=== PATIENT | male | born 1985 | race Caucasian/White ===

== ENCOUNTER 2021-10-13 22:18 | Emergency (ER) | payer OTHER ==
[2021-10-14] MEDS ORDERED: DIPH,PERTUS(ACELL)TETVAC-LF 0.5 ML VIAL IM ONE (00:14)
[2021-10-14] MEDS ORDERED: ONDANSETRON ODT 4 MG TAB PO STA (00:14)
[2021-10-14] MEDS ORDERED: BACITRACIN OINT 1 EACH PACKET TOPICAL ONE (00:15)
[2021-10-14] MEDS ORDERED: LIDOCAINE 1% INJ 10MG/ML (20 ML MDV) SQ ONE (00:15)
--- NOTE | 2021-10-14 00:58 | XR ---
EXAMINATION TYPE: XR chest 2V DATE OF EXAM: 10/14/2021 COMPARISON: NONE HISTORY: Cough TECHNIQUE: 2 views FINDINGS: Heart and mediastinum are normal. Lungs are clear of infiltrate. There is no pleural effusi on. There are no hilar masses. The bony thorax is intact. IMPRESSION: Normal chest.
--- NOTE | 2021-10-14 01:01 | XR ---
EXAMINATION TYPE: XR hand complete LT DATE OF EXAM: 10/14/2021 COMPARISON: None HISTORY: Dog bite TECHNIQUE: 3 views FINDINGS: Metacarpals are intact. I see no fracture nor dislocation. There is some thickening of the distal shaft of the proximal phalanx of the little finger consistent with an old injury. Carpal bones are intact. Joint spaces are fairly normal. IMPRESSION: No acute abnormality of the left hand.
[2021-10-14 01:06] LABS: Basophils # (A) 0.1 k/uL (0-0.2); Basophils % (A) 0 %; Eosinophils # (A) 0.1 k/uL (0-0.7); Eosinophils % (A) 0 %; HCT 44.1 % (39.0-53.0); HGB 15.1 gm/dL (13.0-17.5); Lymphocytes # (A) 1.6 k/uL (1.0-4.8); Lymphocytes % (A) 8 %; MCH 29.7 pg (25.0-35.0); MCHC 34.3 g/dL (31.0-37.0); MCV 86.7 fL (80.0-100.0); Mean Platelet Volume 10.4; Monocytes # (A) 0.8 k/uL (0-1.0); Monocytes % (A) 4 %; Neutrophils # (A) 18.2 k/uL (1.3-7.7); Neutrophils % (A) 87 %; Platelet Count 151 k/uL (150-450); RBC 5.09 m/uL (4.30-5.90); RDW 13.4 % (11.5-15.5)
[2021-10-14 01:21] LABS: Calcium 8.9 mg/dL (8.4-10.2); Potassium 3.3 mmol/L (3.5-5.1)
[2021-10-14] MEDS ORDERED: IBUPROFEN 600 MG TAB PO STA (01:48)
[2021-10-14] MEDS ORDERED: AMOXIC-POT CLAV 875-125MG 1 EACH TAB PO STA (01:49)
--- NOTE | 2021-10-14 01:50 | ED ---
General Adult HPI - General Chief complaint: Animal Bite Stated complaint: Dog bite,Vomiting Time Seen by Provider: 10/13/21 23:35 Source: patient, RN notes reviewed Mode of arrival: ambulatory Limitations: no limitations - History of Present Illness Initial comments: 36-year-old presents to the emergency department for evaluation of injuries to the left hand sustained from dog bites this evening. Patient states his tox were fighting amongst themselves and patient reached into separate them. He has lacerations on the second and third digits of the left hand. Bleeding was controlled prior to arrival. Patient states he experienced some shortness of breath and lightheadedness during the event. States he is concerned that possibly he had a panic attack. Patient states he is currently experiencing mild nausea. States the dogs are immunized, though he has not had a recent Tetanus. Denies fever, chills, blurry vision, chest pain, and abdominal pain. No loss of sensation to affected digits. - Related Data Previous Rx's Medication Instructions Recorded Amoxicillin/Potassium Clav 1 tab PO Q12HR #20 tab 10/14/21 [Augmentin 875-125 Tablet] Ibuprofen [Motrin] 600 mg PO Q8HR PRN #30 tab 10/14/21 Allergies Allergy/AdvReac Type Severity Reaction Status Date / Time No Known Allergies Allergy Verified 10/13/21 22:33 Review of Systems ROS Statement: Those systems with pertinent positive or pertinent negative responses have been documented in the HPI. ROS Other: All systems not noted in ROS Statement are negative. Past Medical History Past Medical History: No Reported History History of Any Multi-Drug Resistant Organisms: None Reported Past Surgical History: No Surgical Hx Reported Past Psychological History: No Psychological Hx Reported Smoking Status: Current every day smoker Past Alcohol Use History: None Reported Past Drug Use History: None Reported General Exam Limitations: no limitations (Well-developed, well-nourished male in no acute d istress. Initial temperature 99.4, pulse 92, respirations 20, blood pressure 121/81, pulse ox 98) General appearance: alert, in no apparent distress Eye exam: Present: normal appearance, PERRL, EOMI. Absent: scleral icterus, conjunctival injection, periorbital swelling Respiratory exam: Present: normal lung sounds bilaterally. Absent: respiratory distress, wheezes, rales, rhonchi, stridor Cardiovascular Exam: Present: regular rate, normal rhythm, normal heart sounds. Absent: systolic murmur, diastolic murmur, rubs, gallop, clicks GI/Abdominal exam: Present: soft, normal bowel sounds. Absent: distended, tenderness, guarding, rebound, rigid Left Forearm Wrist exam: Present: normal inspection, full ROM. Absent: tenderness, swelling Hand Wrist exam: Present: tenderness (Mild tenderness and swelling of the second and third digits), swelling, abrasion (superficial abrasion dorsal surface of third digit, distal phalanx), laceration (2.5 cm irregular laceration second digit; 2cm irregular laceration third digit. Lacerations are on palmar surface at distal phalanx.). Absent: normal inspection, full ROM (Patient has decreased range of motion due to discomfort, however is able to resist when assess flexor tendons of affected digits.), amputation, nail avulsion Vascular: Present: normal capillary refill, radial pulse, ulnar pulse. Absent: vascular compromise, Pallo Neurological exam: Present: alert, oriented X3, CN II-XII intact Psychiatric exam: Present: anxious Skin exam: Present: warm, dry Course Vital Signs 10/13/21 10/14/21 22:30 03:18 Temperature 99.4 F 98.7 F Pulse Rate 92 77 Respiratory 18 16 Rate Blood Pressure 121/81 119/77 O2 Sat by Pulse 98 97 Oximetry - Reevaluation(s) Reevaluation #1: 10/14/21 01:10 Digits anesthetized. Patient is soaking wounds. Tolerating without difficulty. 10/14/21 02:30 Patient is more relaxed as repair is underway. Discussed likelihood of panic symptoms being related to adrenaline during stressful events. Procedures - Laceration Laceration #1 Consent Obtained: verbal consent Indication: laceration Site: hand (2nd digit, left hand) Description: irregular Depth: simple, single layer Anesthetic Used: lidocaine 1% Anesthesia Technique: nerve block Amount (mls): 3 Pre-repair: wound explored, irrigated extensively Type of Sutures: nylon Size of Sutures: 5-0 Number of Sutures: 5 Technique: simple, interrupted Patient Tolerated Procedure: well, no complications Additional Comments: Digital block performed. Wounds soaked then thoroughly irrigated. 5 simple interrupted sutures to loosely approximate wound. Bacitracin dressing and tube gauze applied. Wound care reviewed at length. Patient verbalizes understanding. Laceration #2 Consent Obtained: verbal consent Indication: laceration Site: hand (3rd digit, left hand) Size (cm): 2 Description: irregular Depth: simple, single layer Anesthetic Used: lidocaine 1% Anesthesia Technique: nerve block Amount (mls): 3 Pre-repair: wound explored, irrigated extensively Type of Sutures: nylon Size of Sutures: 5-0 Number of Sutures: 4 Technique: simple, interrupted Patient Tolerated Procedure: well, no complications Additional Comments: Wound anesthetized via digital block. Soaked in idone. Thoroughly irrigated. 4 simple interrupted sutures placed without difficulty. Wound loosely approximated. Bacitracin dressing and tube gauze applied. Wound care discussed at length with patient. He verbalizes understanding. Medical Decision Making - Medical Decision Making 36-year-old male presents to the emergency department for evaluation of wounds sustained a dog bite earlier this evening. Upon exam, patient is initially mildly anxious though is in no acute distress. Physical exam finding is significant for lacerations to the second and third digits. Patient did initially complain of a headache and shortness of breath; these symptoms were likely due to stressful event precipitating the patient's arrival. Laboratory studies were obtained showing leukocytosis which, again, is likely reactive to stressful event. Chest x-ray was obtained and was negative. X-ray of the left hand showed no acute findings. Wounds were thoroughly cleansed, irrigated, and loosely approximated. Patient will be started on Augmentin and given a tetanus shot. He was given Motrin for his headache discomfort which significantly improved. Patient was instructed to follow up with PCP for a recheck by the end of the week. He was instructed at length about wound care and monitoring for signs of infection. Did discuss risk of infection associated with animal bite. Return parameters were discussed in detail. Patient verbalizes understanding and agrees with this plan. - Lab Data Result diagrams: 10/14/21 00:58 10/14/21 00:58 Lab Results 10/14/21 10/14/21 Range/Units 00:58 00:58 WBC 21.0 H (3.8-10.6) k/uL RBC 5.09 (4.30-5.90) m/uL Hgb 15.1 (13.0-17.5) gm/dL Hct 44.1 (39.0-53.0) % MCV 86.7 (80.0-100.0) fL MCH 29.7 (25.0-35.0) pg MCHC 34.3 (31.0-37.0) g/dL RDW 13.4 (11.5-15.5) % Plt Count 151 (150-450) k/uL MPV 10.4 Neutrophils % 87 % Lymphocytes % 8 % Monocytes % 4 % Eosinophils % 0 % Basophils % 0 % Neutrophils # 18.2 H (1.3-7.7) k/uL Lymphocytes # 1.6 (1.0-4.8) k/uL Monocytes # 0.8 (0-1.0) k/uL Eosinophils # 0.1 (0-0.7) k/uL Basophils # 0.1 (0-0.2) k/uL Sodium 135 L (137-145) mmol/L Potassium 3.3 L (3.5-5.1) mmol/L Chloride 102 (98-107) mmol/L Carbon Dioxide 21 L (22-30) mmol/L Anion Gap 12 mmol/L BUN 17 (9-20) mg/dL Creatinine 1.38 H (0.66-1.25) mg/dL Est GFR (CKD-EPI)AfAm 76 (>60 ml/min/1.73 sqM) Est GFR (CKD-EPI)NonAf 65 (>60 ml/min/1.73 sqM) Glucose 108 H (74-99) mg/dL Calcium 8.9 (8.4-10.2) mg/dL - Radiology Data Radiology results: report reviewed, image reviewed Two-view chest x-ray was obtained. Report was reviewed in its entirety. Impression per Dr. Dias is normal chest. X-ray of the left hand was obtained. Report was reviewed in its entirety. Impression per Dr. Gardner is no acute abnormality of the left hand. Disposition Clinical Impression: Dog bite of index finger, Dog bite of middle finger Disposition: HOME SELF-CARE Condition: Stable Instructions (If sedation given, give patient instructions): Animal Bite (ED) Additional Instructions: Keep wounds clean, covered, and dry for the next 24 hours. Cleanse wounds with gentle soap and water twice daily and as needed. Apply antibiotic ointment with dressing changes. Take antibiotic as directed. Monitor closely for any signs of infection including fever, foul-smelling drainage, bright red appearance around wound sites, or significant increase in pain. Do not submerge your hand in dirty water. Follow up with you PCP for a wound recheck by Tuesday. Sutures to be removed in 7-10 days. Return to the emergency department with any new, worsening, or concerning symptoms. Prescriptions: Amoxicillin/Potassium Clav [Augmentin 875-125 Tablet] 1 tab PO Q12HR #20 tab Ibuprofen [Motrin] 600 mg PO Q8HR PRN #30 tab PRN Reason: Pain Is patient prescribed a controlled substance at d/c from ED?: No Referrals: Ilene Villarreal DO [Primary Care Provider] - 1-2 days Time of Disposition: 03:14
[2021-10-14] MEDS ORDERED: ACET/COD 300 MG/30 MG STARTER PACK 6 TAB BTL PO STA (03:13)
[2021-10-14] MEDS ORDERED: ONDANSETRON 4 MG ODT STARTER PACK 2 TAB BTL PO STA (03:13)
[2021-10-14 03:19] VITALS: BP 119/77; PULSE 77; RESP 16; TEMP 98.7
== END 2021-10-14 03:23 | disposition home or self-care (01) ==
LOC: EC 22:18
DX: S61.251A Open bite of left index finger without damage to nail, initial encounter (principal); S61.253A Open bite of left middle finger without damage to nail, initial encounter; F17.200 Nicotine dependence, unspecified, uncomplicated; Z23 Encounter for immunization; W54.0XXA Bitten by dog, initial encounter
CPT/HCPCS: 99285; 90471; 12002; 36415; 80048; 85025; 73130; 71046; 90715; J2001; S0119

== ENCOUNTER → 2022-04-29 | Outpatient (CLI) | payer OTHER ==
[2022-04-29 16:18] LABS: Creatinine,Urine Random 68.2 mg/dL; Protein/Creatinine Ratio,Urine 0.088
[2022-04-29 23:00] LABS: Appearance,Urine Clear (Clear); Bilirubin,Urine Negative (Negative); Blood,Urine Negative (Negative); Color,Urine Yellow (Yellow); Ketones,Urine Negative (Negative); Nitrite,Urine Negative (Negative); Specific Gravity,Urine 1.011 (1.001-1.030); Urobilinogen,Urine 0.2 (0.2,1.0)
[2022-04-29 23:59] LABS: African American GFR (CKD) 111.7 (60.0-200.0); Albumin 4.7 g/dL (3.8-4.9); Albumin/Globulin Ratio 1.57 (1.60-3.17); Anion Gap 9.3 mmol/L (10.00-18.00); BUN/Creat Ratio 11.1 Ratio (12.00-20.00); Blood Urea Nitrogen 11.1 mg/dL (9.0-27.0); Calcium 9.6 mg/dL (8.7-10.3); Carbon Dioxide 25.7 mmol/L (20.0-27.5); Non-African American GFR(CKD) 96.4 (60.0-200.0); Potassium 4.3 mmol/L (3.5-5.5); Total Bilirubin 0.4 mg/dL (0.30-1.20); Total Protein 7.7 g/dL (6.2-8.2)
[2022-04-30 00:10] LABS: HCT 45.2 % (39.6-50.0); HGB 14.9 g/dL (13.0-17.0); MCH 28.2 pg (27.0-32.0); MCV 85.4 fL (80.0-97.0); NRBC Per 100 WBC 0 /100 WBCS (0.0-0.0); Platelet Count 169 X 10*3/uL (140-440); RBC 5.29 X 10*6/uL (4.40-5.60); RDW 13.2 % (11.5-14.5); WBC 7.51 X 10*3/uL (4.50-10.00)
== END | disposition home or self-care (01) ==
LOC: LABWHC1 15:31
PROVIDERS: ATTEND Internal Medicine
DX: N17.9 Acute kidney failure, unspecified (principal)
CPT/HCPCS: 36415; 80053; 81003; 82043; 82570; 84156; 85027